=== PATIENT | male | born 1995 | race Hispanic/Latino ===

== ENCOUNTER 2018-06-07 15:22 | Emergency (ER) | payer OTHER ==
[2018-06-07 16:50] LABS: RAPID GROUP A STREP NEGATIVE (NEGATIVE)
[2018-06-07] MEDS ORDERED: MAGNESIUM CITRATE 296 ML SOLUTION ONE (17:02)
== END 2018-06-07 17:06 | disposition home or self-care (01) ==
LOC: EDH 15:22 → EEVIPCON 15:22 → EDH 17:06
DX: K59.00 Constipation, unspecified (principal); J02.9 Acute pharyngitis, unspecified
CPT/HCPCS: 74018; 87804; 87880